=== PATIENT | female | born 1980 | race Caucasian/White ===

== ENCOUNTER 2016-09-18 14:58 | Inpatient (IN) | payer MEDICAID ==
[~2016-09-18] VITALS: Ht 160 cm; Wt 81.6 kg
[~2016-09-18 14:58] MED LIST: DENIES
[2016-09-18 15:46] VITALS: Ht 160 cm; Wt 81.6 kg
[2016-09-18] MEDS ORDERED: METHYLERGONOVINE 0.2 MG INJ IM PRN (16:00)
[2016-09-18] MEDS ORDERED: IBUPROFEN 600 MG TAB PO PRN (16:00)
[2016-09-18] MEDS ORDERED: LACTATED RINGER'S 1,000 ML IV PRN (16:00)
[2016-09-18] MEDS ORDERED: MISOPROSTOL 200 MCG TAB PR PRN (16:00)
[2016-09-18] MEDS ORDERED: CARBOPROST 250 MCG INJ IM PRN (16:00)
[2016-09-18] MEDS ORDERED: OXYTOCIN 30 UNITS/LR 500 ML IV PRN (16:00)
[2016-09-18] MEDS ORDERED: OXYTOCIN 30 UNITS/LR 500 ML IV SCH ×3 (16:00→18:30)
[2016-09-18] MEDS ORDERED: BUTORPHANOL 2 MG INJ IV PRN (16:00)
[2016-09-18] MEDS ORDERED: LIDOCAINE 1% (MPF) 30 ML INJ INJ PRN (16:00)
--- NOTE | 2016-09-18 16:25 | NSTRPT ---
NST Information Datetime Report Generated by CPN: 09/18/2016 16:25 Datetime: 09/18/2016 14:47 NST Information EGA: 40.1 Datetime: 09/18/2016 14:32 NST Information EGA: 40.1 Datetime: 09/18/2016 14:06 Test Number: 1 Time on Monitor: 09/18/2016 14:25 Time off Monitor: 09/18/2016 14:40 NST Duration (Min): 15 Reason for NST: Other Reason for NST Other: POST DATES Test and Monitor Explained: Monitor Explained; Test Explained; Verbalized Understanding; Breastfee ding Info Given Pulse: 80 Resp: 20 SBP: 120 DBP: 78 Test Evaluation Contraction Frequency: none FHR Baseline : 150 Variability: Moderate 6-25bpm Accelerations: 15X15 Decelerations: None NST Results: Questionable Comments: PT TO U/S. QUENTIN 0. CEPHALIC. Report given to Dr. Donaldson. New orderes received. Pt to L_ D for evaluation and treatment prior to completion of NST. Explained to pt plan of care. Pt states u nderstanding. No furhter questions asked at this time. Electronically Signed By E-Signature: with User ID: [id number]
[2016-09-18 16:55] LABS: BASOPHILS % 0.1 % (0.0-2.0); EOSINOPHILS # 0.1 10^3/ul (0.0-0.5); EOSINOPHILS % 0.9 % (0.0-7.0); HEMATOCRIT 34.9 % (37.0-47.0); HEMOGLOBIN 12.3 g/dl (12.0-16.0); LYMPHOCYTES # 1.4 10^3/ul (0.8-2.9); LYMPHOCYTES % 17.3 % (15.0-51.0); MEAN CORPUSCULAR HEMOGLOBIN 34.6 pg (29.0-33.0); MEAN CORPUSCULAR HGB CONC 35.2 g/dl (32.0-37.0); MEAN PLATELET VOLUME 11.9 fl (7.4-10.4); MONOCYTE # 0.5 10^3/ul (0.3-0.9); MONOCYTES % 6.6 % (0.0-11.0); NEUTROPHIL # 5.9 10^3/ul (1.6-7.5); NEUTROPHILS % 74.2 % (39.0-77.0); PLATELET COUNT 220 10^3/UL (140-415); RED BLOOD COUNT 3.56 10^6/ul (4.20-5.40); RED CELL DISTRIBUTION WIDTH 13.2 % (11.5-14.5); WHITE BLOOD COUNT 7.9 10^3/ul (4.8-10.8)
[2016-09-18 17:10] LABS: INR 0.86; PARTIAL THROMBOPLASTIN TIME 26.4 Sec (25.0-35.0); PROTIME 11.7 Sec (12.2-14.2); PT RATIO 0.9
[2016-09-18] MEDS: LACTATED RINGER'S 1,000 ML IV SCH ×3 (17:10→22:43)
--- NOTE | 2016-09-18 17:58 | HP ---
Date/Time of Note Date/Time of Note DATE: 09/18/16 TIME: 17:53 OB - History Hx of Present Free Text/Dictation Admitted for induction and delivery because of severe oligohydramnios Estimated Due Date: Sep 17, 2016 : 6 Para: 5 Care: Good Care Ultrasounds: Normal mid trimester US Obstetrical Complications: None, Other (Oligohydramnios) Medical Complications: None Past Family/Social History * Past Medical, Surgical, Family and Obstetric Histories reviewed from chart. Blood Type: A+ Rubella: immune RPR/VDRL: Negative GBS Status: Negative HBsAG: Negative OB Admission Exam Physical Exam HEENT: WNL Heart: Rhythm Normal Lungs: Clear, Equal Abdomen: WNL Extremities: Normal Reflexes: Normal Cervical Dilatation: 1cm Effacement: 25% Station: -3 Membranes: Intact Heart Rate: 150's Accelerations: Accelerations Present Decelerations: Variable Decelerations Varibility: Moderate Contractions on Admission: >10 Minutes Apart Last 72 hours Lab Results CBC & BMP 09/18/16 16:10 OB Assessment/Plan Reason for admission: induction of labor Other Assessment: 40+ weeks gestation Severe oligohydramnios Other plan: Will start on contraction stress test 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
[2016-09-19] MEDS ORDERED: FENTAnyl 2MCG/ML-ROPIV 0.2% 100 ML ONE (06:56)
[2016-09-19] MEDS ORDERED: FENTAnyl 2MCG/ML-ROPIV 0.2% 100 ML BAG EPI SCH (07:30)
[2016-09-19] MEDS ORDERED: NALOXONE (0.4 MG/ML) INJ IV PRN (07:30)
[2016-09-19] MEDS ORDERED: MINERAL OIL LIGHT 10 ML VIAL TOP ONE (08:00)
[2016-09-19] MEDS: LACTATED RINGER'S 1,000 ML IV* SCH (10:59)
[2016-09-19] MEDS: OXYTOCIN 30 UNITS/LR 500 ML IV SCH ×2 (10:59→14:59)
--- NOTE | 2016-09-19 10:59 | LDN ---
Date/Time of Note Date/Time of Note DATE: 09/19/16 TIME: 10:56 Delivery Summary of a viable baby girl weighing 3565 grams, 7# 14 oz, 19" long, and with Apgars of 9/9. Weeks of Gestation 40w 2d Placenta Delivered: Spontaneously Meconium: none Episiotomy: No Perineal laceration: 1 Laceration repair: First degree perineal laceration repiared with 2-0 chromic. Anesthesia type: Epidural Estimated blood loss: 150 Sponge & Needle done & correct: Yes All needle counts correct: Yes Any foreign bodies felt in the: No (vagina) Problems: Delivery Information Sex Infant Sex: female Apgars 1 Minute: 9 5 Minute: 9 Suctioning Nose & mouth suctioned at tony: No Delee suction performed: No Umbilical Cord Umbilical cord with: 3 Vessels Cord presentations: no nuchal cord Cord Blood was obtained: Yes Mother & Baby Disposition Disposition Mom & Baby to Maternity; Good: Yes Baby to NICU: No DUYEN SANTIAGO MD Sep 19, 2016 10:59
[2016-09-19] MEDS ORDERED: METHYLERGONOVINE 0.2 MG INJ IM PRN (11:00)
[2016-09-19] MEDS ORDERED: LANOLIN 7 GM TUBE TOP PRN (11:00)
[2016-09-19] MEDS ORDERED: OXYTOCIN 30 UNITS/LR 500 ML IV PRN (11:00)
[2016-09-19] MEDS ORDERED: OXYCODONE/ASPIRIN (4.88/325) TAB PO PRN (11:00)
[2016-09-19] MEDS ORDERED: MISOPROSTOL 200 MCG TAB PR PRN (11:00)
[2016-09-19] MEDS ORDERED: CARBOPROST 250 MCG INJ IM PRN (11:00)
[2016-09-19] MEDS: IBUPROFEN 600 MG TAB PO SCH ×3 (12:00→23:28)
[2016-09-19 15:30] VITALS: BP 123/78; PULSE 65; RESP 18
[2016-09-19 20:20] VITALS: BP 120/75; PULSE 70; RESP 18
[2016-09-20 04:15] VITALS: BP 118/72; PULSE 74; RESP 18
[2016-09-20] MEDS: IBUPROFEN 600 MG TAB PO SCH ×4 (06:07→23:40)
[2016-09-20 07:44] LABS: BASOPHILS % 0.1 % (0.0-2.0); EOSINOPHILS # 0.1 10^3/ul (0.0-0.5); EOSINOPHILS % 1.3 % (0.0-7.0); HEMATOCRIT 33.2 % (37.0-47.0); HEMOGLOBIN 11.2 g/dl (12.0-16.0); LYMPHOCYTES # 1.6 10^3/ul (0.8-2.9); LYMPHOCYTES % 17.1 % (15.0-51.0); MEAN CORPUSCULAR HEMOGLOBIN 33.9 pg (29.0-33.0); MEAN CORPUSCULAR HGB CONC 33.7 g/dl (32.0-37.0); MEAN CORPUSCULAR VOLUME 100.6 fl (82.0-101.0); MEAN PLATELET VOLUME 11.7 fl (7.4-10.4); MONOCYTE # 0.5 10^3/ul (0.3-0.9); MONOCYTES % 5.3 % (0.0-11.0); NEUTROPHILS % 75.6 % (39.0-77.0); PLATELET COUNT 178 10^3/UL (140-415); RED CELL DISTRIBUTION WIDTH 13.5 % (11.5-14.5); WHITE BLOOD COUNT 9.3 10^3/ul (4.8-10.8)
[2016-09-20 08:00] VITALS: BP 115/62; PULSE 73; RESP 18
[2016-09-20 16:00] VITALS: BP 123/80; PULSE 69; RESP 16
--- NOTE | 2016-09-20 16:36 | DS ---
Date/Time of Note Date/Time of Note Home next day DATE: 09/20/16 TIME: 16:35 Obstetrical Discharge Record Final Diagnosis Final Diagnosis: Term delivered Other Final Diagnosis Status post vaginal delivery Vaginal Delivery Obstetrical Delivery: Spontaneous Complications Augmentation: Yes Condition on Discharge Physical Assessment Last Vitals: See nurse's notes Voiding: Yes Bowel Movement: Yes Breast: Soft, non-tender, Filling Fundus: Firm Abdomen and Incision: Soft bowel sounds present Episiotomy: Not applicable Calf Tenderness: No Patient Condition: Good RADHA SANDERS MD Sep 20, 2016 16:36
[2016-09-20] MEDS ORDERED: IBUP-1542 PO (16:37)
--- NOTE | 2016-09-20 16:37 | PD.PPDC ---
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
[2016-09-20 20:18] VITALS: BP 124/78; PULSE 78; RESP 18
[2016-09-21] MEDS: LACTATED RINGER'S 1,000 ML IV* SCH ×3 (01:08→10:59)
[2016-09-21 05:25] VITALS: BP 125/75; PULSE 66; RESP 18
[2016-09-21] MEDS: IBUPROFEN 600 MG TAB PO SCH ×2 (06:13→11:38)
[2016-09-21 08:31] VITALS: BP 112/68; PULSE 69; RESP 18
[2016-09-21] MEDS ORDERED: DIPHTH/TET/ACEL PERTUSS (ADULT) 0.5 ML VIAL IM* ONE (09:00)
== END 2016-09-21 15:52 | disposition home or self-care (01) | DRG 775 ==
LOC: L-D 14:58 → PP1 09-19 13:29
PROVIDERS: ADMIT Obstetrics & Gynecology; ATTEND Obstetrics & Gynecology
PROC: 10E0XZZ Delivery of Products of Conception, External Approach (ICD-10-PCS; principal; 2016-09-19)
PROC: 0HQ9XZZ Repair Perineum Skin, External Approach (ICD-10-PCS; 2016-09-19)
DX: O41.03X0 Oligohydramnios, third trimester, not applicable or unspecified (principal); O48.0 Post-term pregnancy; O76 Abnormality in fetal heart rate and rhythm complicating labor and delivery; Z3A.40 40 weeks gestation of pregnancy; O70.0 First degree perineal laceration during delivery; Z37.0 Single live birth
CPT/HCPCS: 62319; 85025; 85610; 85730; 86592; 86900; 86901; 87340; 90715; J2590; J3010; J7120